=== PATIENT | female | born 1990 | race Caucasian/White ===

== ENCOUNTER 2016-10-22 22:43 | Emergency (ER) | payer OTHER ==
[~2016-10-22] VITALS: Ht 165.1 cm; Wt 80.0 kg
[~2016-10-22 22:43] MED LIST: BACT800T5 PO
[2016-10-22 22:45] VITALS: BP 115/77; PULSE 97; RESP 18; TEMP 98.6; O2SAT 96
[2016-10-22] MEDS ORDERED: SODIUM CHLOR 0.9% 1000 ML INJ 1,000 ML IV ONE (22:45)
[2016-10-22] MEDS ORDERED: SODIUM CHLORIDE 0.9% FLUSH 5 ML FLUSH IVF PRN (22:45)
--- NOTE | 2016-10-22 23:05 | PD ---
HPI Chief Complaint: Altered Mental Status Time Seen by Provider: 22:57 Travel History International Travel<30 days: No Contact w/Intl Traveler<30days: No Traveled to known affect area: No History of Present Illness HPI Patient is a 26-year-old female who was brought into emergency department via EMS from [facility]. Patient has not been eating, drinking, taking her medications, or caring for herself. She was placed under Hernandez act due to the same symptoms on , medically cleared and brought to [facility]. Mother is an ER nurse and states that she has not been evaluated by a psychiatrist does not want her to return there. Patient is nonverbal at this time. She was given dose of IM Zyprexa this evening. Mother states that she stopped taking her Zoloft approximately 6 months ago and seems to have had a downward spiral since that time. PFSH Past Medical History Anxiety: Yes Depression: Yes (took zoloft, stopped due to weight gain) Diminished Hearing: No Medical other: Yes (hx of pylonephritis) ?: Unknown LMP: 10/04/2016 : 0 Past Surgical History Surgical History: No Previous Surgery Social History Alcohol Use: No Tobacco Use: No Substance Use: No Allergies-Medications (Allergen,Severity, Reaction): Coded Allergies: No Known Allergies (Unverified , 10/20/16) Reported Meds & Prescriptions Reported Meds & Active Scripts Active Macrobid (Nitrofurantoin Monoh/Nitrofur Macro) 100 Mg Cap 100 Mg PO BID 10 Days Bactrim DS (Sulfamethoxazole-Trimethoprim) 800-160 Mg Tab 1 Tab PO BID Review of Systems ROS Limitations: Other: (nonverbal) Except as stated in HPI: all other systems reviewed are Neg Psychiatric: Positive: Mood Disorder Physical Exam Exam Limitations: Uncooperative Narrative GENERAL: Overweight, well-developed male. Resting comfortably in no acute distress. SKIN: Warm and dry. Significant facial hair, chest hair, abdominal hair noted. HEAD: Atraumatic. Normocephalic. EYES: Pupils equal and round. No scleral icterus. No injection or drainage. ENT: No nasal bleeding or discharge. Mucous membranes pink and moist. NECK: Trachea midline. No JVD. CARDIOVASCULAR: Regular rate and rhythm. No murmur appreciated. RESPIRATORY: No accessory muscle use. Clear to auscultation. Breath sounds equal bilaterally. GASTROINTESTINAL: Abdomen soft, non-tender, nondistended. Hepatic and splenic margins not palpable. MUSCULOSKELETAL: No obvious deformities. No clubbing. No cyanosis. No edema. NEUROLOGICAL: Patient's eyes are closed, she does respond to painful stimuli. No obvious cranial nerve deficits. Motor grossly within normal limits. Nonverbal Data Data Last Documented VS Vital Signs Date Time Temp Pulse Resp B/P Pulse Ox O2 Delivery O2 Flow Rate FiO2 10/22/16 22:45 98.6 97 18 115/77 96 Orders Complete Blood Count With Diff (10/22/16 22:45) Comprehensive Metabolic Panel (10/22/16 22:45) Thyroid Stimulating Hormone (10/22/16 22:45) Urinalysis - C+S If Indicated (10/22/16 22:45) Oximetry (10/22/16 22:45) Iv Access Insert/Monitor (10/22/16 22:45) Ecg Monitoring (10/22/16 22:45) Psych Screen (10/22/16 22:45) Sodium Chloride 0.9% Flush (Ns Flush) (10/22/16 22:45) Sodium Chlor 0.9% 1000 Ml Inj (Ns 1000 M (10/22/16 22:45) Urine Culture (10/22/16 23:03) Nitrofurantoin Monohyd Macrocr (Macrobid (10/22/16 23:45) Labs Laboratory Tests Test 10/22/16 23:03 White Blood Count 9.4 TH/MM3 Red Blood Count 5.04 MIL/MM3 Hemoglobin 14.2 GM/DL Hematocrit 41.7 % Mean Corpuscular Volume 82.8 FL Mean Corpuscular Hemoglobin 28.2 PG Mean Corpuscular Hemoglobin 34.1 % Concent Red Cell Distribution Width 13.2 % Platelet Count 318 TH/MM3 Mean Platelet Volume 8.1 FL Neutrophils (%) (Auto) 67.1 % Lymphocytes (%) (Auto) 24.1 % Monocytes (%) (Auto) 7.8 % Eosinophils (%) (Auto) 0.8 % Basophils (%) (Auto) 0.2 % Neutrophils # (Auto) 6.3 TH/MM3 Lymphocytes # (Auto) 2.3 TH/MM3 Monocytes # (Auto) 0.7 TH/MM3 Eosinophils # (Auto) 0.1 TH/MM3 Basophils # (Auto) 0.0 TH/MM3 CBC Comment DIFF FINAL Differential Comment Urine Color YELLOW Urine Turbidity CLEAR Urine pH 6.0 Urine Specific [place] 1.030 Urine Protein TRACE mg/dL Urine Glucose (UA) NEG mg/dL Urine Ketones 150 mg/dL Urine Occult Blood LARGE Urine Nitrite NEG Urine Bilirubin NEG Urine Urobilinogen 2.0 MG/DL Urine Leukocyte Esterase LARGE Urine RBC 46 /hpf Urine WBC 27 /hpf Urine Squamous Epithelial 2 /hpf Cells Urine Mucus FEW /lpf Microscopic Urinalysis Comment CATH-CULTURE IND Sodium Level 140 MEQ/L Potassium Level 3.6 MEQ/L Chloride Level 103 MEQ/L Carbon Dioxide Level 26.2 MEQ/L Anion Gap 11 MEQ/L Blood Urea Nitrogen 12 MG/DL Creatinine 0.68 MG/DL Estimat Glomerular Filtration 105 ML/MIN Rate Random Glucose 64 MG/DL Calcium Level 9.2 MG/DL Total Bilirubin 0.4 MG/DL Aspartate Amino Transf 14 U/L (AST/SGOT) Alanine Aminotransferase 22 U/L (ALT/SGPT) Alkaline Phosphatase 129 U/L Total Protein 7.9 GM/DL Albumin 3.7 GM/DL Thyroid Stimulating Hormone 2.700 uIU/ML 3rd [facility] Medical Decision Making Medical Screen Exam Complete: Yes Emergency Medical Condition: Yes Interpretation(s) Vital Signs Date Time Temp Pulse Resp B/P Pulse Ox O2 Delivery O2 Flow Rate FiO2 10/22/16 22:45 98.6 97 18 115/77 96 Differential Diagnosis Major depression versus mood disorder versus hormone abnormality versus delirium versus electrolyte abnormality versus psychosis versus other Narrative Course Patient is a 26-year-old female who was brought back to the emergency department from [facility] due to lack of by mouth intake, not taking care of herself, not taking her medications. These were the same reasons patient was sent there a few days ago however mother was concerned that she has a urinary tract infection that is worsening. Patient was given Rocephin emergency department prior to her transfer to [facility] on , she was subsequently prescribed Bactrim. Patient is nonverbal, she is responding to painful stimuli, she appears aware of what is going on. Labs and urinalysis ordered and pending. Care of patient transferred to my attending physician who will determine pt's disposition. Scripts Nitrofurantoin Monohydrate Macrocrystals (Macrobid)100 Mg [id number] Mg PO BID 10 Days Ref 0 Prov:Gemini Solomon DO 10/23/16 Laurie Crawley Oct 22, 2016 23:05
[2016-10-22 23:20] LABS: AUTOMATED NEUTROPHIL # 6.3 TH/MM3 (1.8-7.7); BASOPHIL % 0.2 % (0.0-2.0); EOSINOPHIL # 0.1 TH/MM3 (0-0.4); EOSINOPHIL % 0.8 % (0.0-4.0); HEMATOCRIT 41.7 % (35.0-46.0); HEMO FLAGS DIFF FINAL; LYMPH % 24.1 % (9.0-44.0); LYMPHOCYTE # 2.3 TH/MM3 (1.0-4.8); MEAN CELL VOLUME 82.8 FL (80.0-100.0); MEAN CORPUSCULAR HEMOGLOBIN 28.2 PG (27.0-34.0); MEAN CORPUSCULAR HGB CONC 34.1 % (32.0-36.0); MONO % 7.8 % (0.0-8.0); NEUT % 67.1 % (16.0-70.0); PLATELET COUNT 318 TH/MM3 (150-450); RED BLOOD COUNT 5.04 MIL/MM3 (4.00-5.30); RED CELL DISTRIBUTION WIDTH 13.2 % (11.6-17.2); WHITE BLOOD COUNT 9.4 TH/MM3 (4.0-11.0)
[2016-10-22 23:31] LABS: BLOOD, URINE LARGE (NEG); COMMENT (UR) CATH-CULTURE IND; CULTURE IF INDICATED CATH CULTURE IND; GLUCOSE,URINE NEG (NEG); KETONE, URINE 150 mg/dL (NEG); MUCUS URINE FEW /lpf (OCC); NITRITE,URINE NEG (NEG); SQUAMOUS EPITHELIAL CELL URINE 2 /hpf (0-5); URINE COLOR YELLOW (YELLW/STRAW)
[2016-10-22 23:39] LABS: ALT (GPT) 22 U/L (10-53); ANION GAP 11 MEQ/L (5-15); AST (GOT) 14 U/L (15-37); BICARBONATE 26.2 MEQ/L (21.0-32.0); BLOOD UREA NITROGEN 12 MG/DL (7-18); CHLORIDE 103 MEQ/L (98-107); GLOMERULAR FILTRATION RATE 105 ML/MIN (>89); POTASSIUM 3.6 MEQ/L (3.5-5.1); SODIUM (NA) 140 MEQ/L (136-145)
[2016-10-22] MEDS ORDERED: NITROFURANTOIN MONOHYD MACROCR 100 MG CAP PO ONE (23:45)
[2016-10-22 23:48] LABS: ALKALINE PHOSPHATASE 129 U/L (45-117); TOTAL BILIRUBIN ADULT 0.4 MG/DL (0.2-1.0)
[2016-10-23] MEDS ORDERED: MACR100C2 PO (00:13)
--- NOTE | 2016-10-23 00:13 | PD ---
Physical Exam Date Seen by Provider: Oct 23, 2016 Data Data Last Documented VS Vital Signs Date Time Temp Pulse Resp B/P Pulse Ox O2 Delivery O2 Flow Rate FiO2 10/22/16 22:45 98.6 97 18 115/77 96 Orders Complete Blood Count With Diff (10/22/16 22:45) Comprehensive Metabolic Panel (10/22/16 22:45) Thyroid Stimulating Hormone (10/22/16 22:45) Urinalysis - C+S If Indicated (10/22/16 22:45) Oximetry (10/22/16 22:45) Iv Access Insert/Monitor (10/22/16 22:45) Ecg Monitoring (10/22/16 22:45) Psych Screen (10/22/16 22:45) Sodium Chloride 0.9% Flush (Ns Flush) (10/22/16 22:45) Sodium Chlor 0.9% 1000 Ml Inj (Ns 1000 M (10/22/16 22:45) Urine Culture (10/22/16 23:03) Nitrofurantoin Monohyd Macrocr (Macrobid (10/22/16 23:45) Labs Laboratory Tests Test 10/22/16 23:03 White Blood Count 9.4 TH/MM3 Red Blood Count 5.04 MIL/MM3 Hemoglobin 14.2 GM/DL Hematocrit 41.7 % Mean Corpuscular Volume 82.8 FL Mean Corpuscular Hemoglobin 28.2 PG Mean Corpuscular Hemoglobin 34.1 % Concent Red Cell Distribution Width 13.2 % Platelet Count 318 TH/MM3 Mean Platelet Volume 8.1 FL Neutrophils (%) (Auto) 67.1 % Lymphocytes (%) (Auto) 24.1 % Monocytes (%) (Auto) 7.8 % Eosinophils (%) (Auto) 0.8 % Basophils (%) (Auto) 0.2 % Neutrophils # (Auto) 6.3 TH/MM3 Lymphocytes # (Auto) 2.3 TH/MM3 Monocytes # (Auto) 0.7 TH/MM3 Eosinophils # (Auto) 0.1 TH/MM3 Basophils # (Auto) 0.0 TH/MM3 CBC Comment DIFF FINAL Differential Comment Urine Color YELLOW Urine Turbidity CLEAR Urine pH 6.0 Urine Specific [place] 1.030 Urine Protein TRACE mg/dL Urine Glucose (UA) NEG mg/dL Urine Ketones 150 mg/dL Urine Occult Blood LARGE Urine Nitrite NEG Urine Bilirubin NEG Urine Urobilinogen 2.0 MG/DL Urine Leukocyte Esterase LARGE Urine RBC 46 /hpf Urine WBC 27 /hpf Urine Squamous Epithelial 2 /hpf Cells Urine Mucus FEW /lpf Microscopic Urinalysis Comment CATH-CULTURE IND Sodium Level 140 MEQ/L Potassium Level 3.6 MEQ/L Chloride Level 103 MEQ/L Carbon Dioxide Level 26.2 MEQ/L Anion Gap 11 MEQ/L Blood Urea Nitrogen 12 MG/DL Creatinine 0.68 MG/DL Estimat Glomerular Filtration 105 ML/MIN Rate Random Glucose 64 MG/DL Calcium Level 9.2 MG/DL Total Bilirubin 0.4 MG/DL Aspartate Amino Transf 14 U/L (AST/SGOT) Alanine Aminotransferase 22 U/L (ALT/SGPT) Alkaline Phosphatase 129 U/L Total Protein 7.9 GM/DL Albumin 3.7 GM/DL Thyroid Stimulating Hormone 2.700 uIU/ML 3rd Gen [facility] Medical Record Reviewed: Yes Supervised Visit with BESS: Yes Narrative Course I, Dr. Solomon, have reviewed the advance practice practitioner's documentation and am in agreement, met with the patient face to face, made the diagnosis, and the medical decision making was done by me. *My assessment and Findings: 26-year-old female who presents to emergency room after she had a singh act initiated her by [facility]. Patient was sent to ER for medical clearance as she has not been eating, drinking or taking any medications. Patient is not here for psychiatric evaluation, and is only here for medical clearance. All labs and all studies reviewed with patients mother in detail. Patient currently on Bactrim for UTI which was diagnosed with on . Patient with continued UTI symptoms, will change her to Macrobid. Plan to discharge patient back to [facility]. Diagnosis Primary Impression: UTI (urinary tract infection) Qualified Code: N30.00 - Acute cystitis without hematuria Additional Impression: Major depression Patient Instructions: General Instructions Additional Instruction: Please stop the Bactrim, please start Macrobid for urinary tract infection Return to ER as needed Med/Other Pt SpecificInfo: Prescription(s) given Scripts Nitrofurantoin Monohydrate Macrocrystals (Macrobid)100 Mg Uel350 Mg PO BID 10 Days Ref 0 Prov:Gemini Solomon DO 10/23/16 Disposition: 01 DISCHARGE HOME Condition: Stable Gemini Solomon DO Oct 23, 2016 00:13
== END 2016-10-23 00:51 | disposition home or self-care (01) ==
LOC: NEPE 22:43
DX: N30.00 Acute cystitis without hematuria (principal); F32.9 Major depressive disorder, single episode, unspecified; R41.82 Altered mental status, unspecified
CPT/HCPCS: 80053; 81001; 84443; 85025; 87086; 96360; 99283; J7030